=== PATIENT | male | born 1955 | race Caucasian/White ===

== ENCOUNTER 2021-04-18 23:20 | Emergency (ER) | payer OTHER ==
[~2021-04-18] VITALS: Ht 175.3 cm; Wt 98.0 kg
--- NOTE | ~2021-04-18 | EMS ---
[place] [address] EMS Patient Care Report Name: JIM LAURA Room: [facility]#: [id number] Admission: Attend Phys: Discharge: Date of : 59 Report #: [id number] THIS REPORT FOR: //name// Report Transmitted: 04/18/2021 23:27 EMS Care Summary [facility] Incident [id number] @ 04/18/2021 22:33 Incident Location [address] [place] [address] Patient JIM LAURA Male, 65 Years 1955 Patient Address [address] [place] [address] Patient History Hypertension (HTN),Alcohol Abuse, Patient Allergies No known allergies, Patient Medications Diltiazem, Chief Complaint AMS Disposition Transported No Lights/[place]patch Reason Stroke/CVA [facility] Narrative Dispatched to a residence for 65y/o male poss. stroke. Upon arrival pt. was standing in the bathroom, alert but disoriented. [place] [address] EMS Patient Care Report Name: JIM LAURA Room: [facility].#: [id number] Admission: Attend Phys: Discharge: Date of : 59 Report #: [id number] name or birthdate. Pt. was also disoriented to place, time, and event. Pt. had slurred speech but facial droop was negative and arm drift was negative. Pt. eyes and skin appeared jaundice. Pt. had pitting edema both lower legs. Pt. entire ABD was distended and tight. Pt. stated he had no complaints and denied alcohol or drug use. Pt. was cooperative and followed commands. VS were stable, BG was 111. IV was started during transport. Pt. condition was unchanged. Pt. was transported to [place] for emergency services. Initial Vitals @22:40P: 117,R: 16,BP: 100/66,Pain: 0/10,GCS: 14,Glucose: 111,SpO2: 94,Revised Trauma: 12, @22:55P: 119,R: 16,BP: 119/63,GCS: 14,SpO2: 95,Revised Trauma: 12, @23:10P: 108,R: 16,BP: 137/69,GCS: 14,SpO2: 96,Revised Trauma: 12, Impression Altered Mental Status Procedures @23:05 IV Therapy - Saline Lock 10cc (20 ga) Site: Hand-Left Response: UnchangedSucceeded Timeline 22:33,Call Received 22:33,Dispatched 22:35,En Route 22:37,Initial Responder On Scene 22:37,On Scene 22:38,At Patient 22:40,BP: 100/66 M,PULSE: 117,RR: 16 R,SPO2: 94 Ox,ETCO2: ,B,PAIN: 0,GCS: 14, 22:55,BP: 119/63 M,PULSE: 119,RR: 16 R,SPO2: 95 Ox,ETCO2: ,BG: ,PAIN: ,GCS: 14, 22:56,Depart Scene 23:05,IV Therapy - Saline Lock 10cc 20 ga Site: Hand-Left,Response: UnchangedSucceeded, 23:10,BP: 137/69 M,PULSE: 108,RR: 16 R,SPO2: 96 Ox,ETCO2: ,BG: ,PAIN: ,GCS: 14, 23:16,At Destination 23:18,Transfer Patient 23:30,Call Closed 23:48,In District Disclaimer v1.1 Copyright 2021 [employer] This EMS Care Summary contains data elements from the applicable legal record (which may be displayed differently). It [place] [address] EMS Patient Care Report Name: JIM LAURA Room: [facility].#: [id number] Admission: Attend Phys: Discharge: Date of : 59 Report #: [id number] information for the following purposes: continuity of care, clinical quality, and state data reporting. The complete legal record is available to ED staff and administrators of the receiving hospital in [employer]'s Patient Tracker. All data is provided "as is."
--- NOTE | ~2021-04-18 | EMS ---
[place] [address] EMS Patient Care Report Name: JIM LAURA Room: [facility]#: [id number] Admission: 04/18/21 Attend Phys: Discharge: Date of : 59 Report #: [id number] THIS REPORT FOR: //name// Report Transmitted: 04/19/2021 00:28 EMS Care Summary [facility] Incident [phone] @ 04/18/2021 22:33 Incident Location [address] [place] [address] Patient JIM LAURA Male, 65 Years 1955 Patient Address [address] [place] [address] Patient History Hypertension (HTN),Alcohol Abuse, Patient Allergies No known allergies, Patient Medications Diltiazem, Chief Complaint AMS Disposition Transported No Lights/[place] Reason Stroke/CVA Transported To [facility] Narrative Dispatched to a residence for 65y/o male poss. stroke. Upon arrival pt. was standing in the bathroom, alert but disoriented. Pt. was not able to state his [facility] [address] [place] [address] EMS Patient Care Report Name: JIM LAURA Room: [facility]#: [id number] Admission: 04/18/21 Attend Phys: Discharge: Date of : 59 Report #: [id number] name or birthdate. Pt. was also disoriented to place, time, and event. Pt. had slurred speech but facial droop was negative and arm drift was negative. Pt. eyes and skin appeared jaundice. Pt. had pitting edema both lower legs. Pt. entire ABD was distended and tight. Pt. stated he had no complaints and denied alcohol or drug use. Pt. was cooperative and followed commands. VS were stable, BG was 111. IV was started during transport. Pt. condition was unchanged. Pt. was transported to [place] for emergency services. Initial Vitals @22:40P: 117,R: 16,BP: 100/66,Pain: 0/10,GCS: 14,Glucose: 111,SpO2: 94,Revised Trauma: 12, @22:55P: 119,R: 16,BP: 119/63,GCS: 14,SpO2: 95,Revised Trauma: 12, @23:10P: 108,R: 16,BP: 137/69,GCS: 14,SpO2: 96,Revised Trauma: 12, Impression Altered Mental Status Procedures @23:05 IV Therapy - Saline Lock 10cc (20 ga) Site: Hand-Left Response: UnchangedSucceeded Timeline 22:33,Call Received 22:33,Dispatched 22:35,En Route 22:37,Initial Responder On Scene 22:37,On Scene 22:38,At Patient 22:40,BP: 100/66 M,PULSE: 117,RR: 16 R,SPO2: 94 Ox,ETCO2: ,B,PAIN: 0,GCS: 14, 22:55,BP: 119/63 M,PULSE: 119,RR: 16 R,SPO2: 95 Ox,ETCO2: ,BG: ,PAIN: ,GCS: 14, 22:56,Depart Scene 23:05,IV Therapy - Saline Lock 10cc 20 ga Site: Hand-Left,Response: UnchangedSucceeded, 23:10,BP: 137/69 M,PULSE: 108,RR: 16 R,SPO2: 96 Ox,ETCO2: ,BG: ,PAIN: ,GCS: 14, 23:16,At Destination 23:18,Transfer Patient 23:30,Call Closed 23:48,In District Disclaimer v1.1 Copyright 2021 [employer] This EMS Care Summary contains data elements from the applicable legal record (which may be displayed differently). It is designed [place] [address] EMS Patient Care Report Name: JIM LAURA Room: [facility]#: [id number] Admission: 04/18/21 Attend Phys: Discharge: Date of : 59 Report #: [id number] information for the following purposes: continuity of care, clinical quality, and state data reporting. The complete legal record is available to ED staff and administrators of the receiving hospital in [employer]'s Patient Tracker. All data is provided "as is."
[2021-04-18] MEDS ORDERED: DILTIAZEM ER180 M2 PO (23:25)
[2021-04-19 01:14] LABS: HEMATOCRIT 36.9 % (42.0-52.0); HEMOGLOBIN 12.5 gm/dL (14.0-18.0); MCH 35.3 pg (26.0-34.0); MCHC 33.9 g/dL (28.0-37.0); MCV 104.2 fL (80.0-100.0); MPV 8.2 fl. (7.2-11.1); NUCLEATED RBCS 0 /100WBC; PLATELET COUNT* 305 thou/uL (150-400); RBC 3.54 mil/uL (4.50-6.00); RDW-CV 13.8 % (10.5-14.5)
[2021-04-19 01:21] LABS: CALCIUM 7.6 mg/dL (8.5-10.1); CREATININE 0.9 mg/dL (0.6-1.3); POTASSIUM 3.2 mmol/L (3.5-5.1)
[2021-04-19 01:31] LABS: INR 1.4
[2021-04-19 01:32] LABS: ALBUMIN 1.7 g/dL (3.4-5.0); MAGNESIUM 1.8 mg/dL (1.8-2.4); TOTAL BILIRUBIN 2.9 mg/dL (<0.1-1.0); TOTAL PROTEIN 6.7 g/dL (6.4-8.2)
[2021-04-19 01:48] LABS: URINE BLOOD TRACE (Negative); URINE CLARITY CLEAR; URINE COLOR DARK YELLOW; URINE GLUCOSE-RANDOM TRACE (Negative); URINE KETONES TRACE (Negative); URINE LEUKOCYTES-REFLEX NEGATIVE (Negative); URINE PROTEIN TRACE (Negative); URINE SPECIFIC GRAVITY 1.025 (1.005-1.030); URINE UROBILINOGEN >= 8.0 E.U./dl (0.2-1.0)
[2021-04-19 01:50] LABS: URINE BILIRUBIN 2+ (Negative); URINE NITRITE-REFLEX POSITIVE (Negative)
[2021-04-19 01:56] LABS: BACTERIA-REFLEX >30 Many /HPF (None Seen); COARSE GRANULAR CASTS 0-3 Few /LPF (None Seen); CRYSTALS None Seen /LPF (None Seen); FINE GRANULAR CASTS 0-3 Few /LPF (None Seen); MUCUS >6 Heavy strn/LPF (None Seen); SQUAMOUS 0-3 Few /LPF (0-3); TRANSITIONAL EPITHEL CELL 0-3 Few /LPF (None Seen); URINE RBC 3-10 Few /HPF (0-2); WBC CLUMPS Few (None Seen)
[2021-04-19 02:08] LABS: ABSOLUTE BASOPHILS 0.1 thou/uL (0.0-0.2); ABSOLUTE EOSINOPHILS 0.1 thou/uL (0.0-0.7); ABSOLUTE LYMPHOCYTES 1.3 thou/uL (0.8-5.3); ABSOLUTE MONOCYTES 1.2 thou/uL (0.0-1.2); ABSOLUTE NEUTROPHILS 7.3 thou/uL (1.6-8.1); PLATELET ESTIMATE ADEQUATE; TOXIC GRANULATION 1+
[2021-04-19 03:45] VITALS: BP 113/50
--- NOTE | 2021-04-19 12:55 | EKG ---
[place] [address] ELECTROCARDIOGRAM REPORT Name: JIM LAURA Room: [facility]#: [id number] Admission: 04/18/21 Attend Phys: Discharge: 04/19/21 Date of : 59 Date of Service: 04/18/212326 Report #: [id number] THIS REPORT FOR: //name// [facility] ED Test Date: 2021-04-18 Test Time: 23:27:08 Pat Name: JIM LAURA Department: Room: Gender: Human Resources Designate: : 1955 Requested By: Betty Puentes Order Number: [id number] MD: Camacho Harmon Measurements Intervals [place] Rate: 107 P: 18 ND: 141 QRS: -40 QRSD: 90 T: 30 QT: 352 QTc: 470 Interpretive Statements Sinus tachycardia Left anterior fascicular block Low voltage, precordial leads Consider anterolateral infarct No previous ECG available for comparison Consider old lateral SD Electronically Signed On 04-19-2021 12:55:44 [employer]PERATOR by Camacho Harmon [email or web address] <ELECTRONICALLY SIGNED> By: Nicolas Harmon MD, [facility] 04/19/21 [id number] Nicolas Harmon MD, [facility] /EPI
== END 2021-04-19 03:45 | disposition short-term general hospital (02) ==
LOC: M.ERS 23:20
PROVIDERS: Emergency Medicine
DX: S06.350A Traumatic hemorrhage of left cerebrum without loss of consciousness, initial encounter (principal); F10.10 Alcohol abuse, uncomplicated; Y90.9 Presence of alcohol in blood, level not specified; I10 Essential (primary) hypertension; Z79.899 Other long term (current) drug therapy; X58.XXXA Exposure to other specified factors, initial encounter; Y93.89 Activity, other specified; Y92.89 Other specified places as the place of occurrence of the external cause; Y99.8 Other external cause status